=== PATIENT | female | born 1960 | race Caucasian/White ===

== ENCOUNTER 2017-06-09 09:49 | Emergency (ER) | payer OTHER ==
[~2017-06-09] VITALS: Ht 165.1 cm; Wt 82.1 kg
[~2017-06-09 09:49] MED LIST: ALBU-136 IH; LISI30TA6 PO
[2017-06-09 10:11] VITALS: BP 141/74
--- NOTE | 2017-06-09 10:47 | NUR ---
PT AMBULATED TO BED 7.
--- NOTE | 2017-06-09 10:50 | NUR ---
57F BIB SELF C/O RT FLANK PAIN, RADIATES TO LEFT FLANK X YESTERDAY; PT STATES HAS PAIN "WITH BENDING AND MOVEMENT", BUT STATES NO PAIN AT THIS TIME.; PT STATES NO TRAUMA OR INJURY TO SITE AT THIS TIME; PT STATES NO URINARY BURNING, NO URINARY RETENTION, OR PAIN ON URINATION AT THIS TIME; PT AA&OX4, PERRLA, BL LUNG SOUNDS CLEAR, RR EVEN/UNLABORED, SKIN IS WARM/DRY/INTACT AT THIS TIME; PT STATES NO N/V/D AT THIS TIME; STEADY GAIT; PT RESTING IN BED WITH HOB ELEVATED AND IN LOWEST POSITION; POSITIONED FOR COMFORT; ER MD MADE AWARE OF STATUS. WILL CONTINUE TO MONITOR.
--- NOTE | 2017-06-09 10:53 | NUR ---
ER MD DR. DIEHL EVALUATING PT AT BEDSIDE.
--- NOTE | 2017-06-09 11:12 | NUR ---
PT TAKEN TO XRAY VIA W/C ACCOMPANIED BY [employer].
[2017-06-09 11:56] VITALS: BP 122/72
--- NOTE | 2017-06-09 11:56 | NUR ---
Patient discharged with v/s stable. Written and verbal after care instructions given and explained. Patient alert, oriented and verbalized understanding of instructions. Ambulatory with to car. All questions addressed prior to discharge. ID band removed. Patient advised to follow up with PMD. Rx of NORCO 5MG-325MG TAB given. Patient educated on indication of medication including possible reaction and side effects. Opportunity to ask questions provided and answered.
== END 2017-06-09 11:56 | disposition home or self-care (01) ==
LOC: MED 09:49
DX: M81.8 Other osteoporosis without current pathological fracture (principal); M54.5 Low back pain; J45.909 Unspecified asthma, uncomplicated; K21.9 Gastro-esophageal reflux disease without esophagitis; I10 Essential (primary) hypertension; Z79.899 Other long term (current) drug therapy; Z88.6 Allergy status to analgesic agent
CPT/HCPCS: 72100; 99284

== ENCOUNTER 2018-02-24 16:19 | Emergency (ER) | payer OTHER ==
[~2018-02-24] VITALS: Ht 165.1 cm; Wt 84.0 kg
[2018-02-24 16:21] VITALS: BP 144/93
--- NOTE | 2018-02-24 16:28 | NUR ---
PT AMBULATES TO BED 7, REPORT GIVEN TO SANJUANITA MUJICA
--- NOTE | 2018-02-24 16:35 | NUR ---
PATIENT PRESENTS TO ED WITH COMPLAINTS OF BILATERAL EAR DRAINAGE AND EAR CONGESTION. PATIENT ALSO COMPLAINS OF RIGHT UPPER QUADRANT PAIN. EAR COMPLAINT X 10 DAYS AND ABDOMINAL PAIN COMPLAINT X 2 MONTHS. PATIENT REPORTS TAKING ANTIBIOTICS FOR EAR DRAINAGE WITH NO RELIEF. PURULENT DRAINAGE NOTED FROM BILATERAL EARS. SKIN IS PINK/WARM/DRY; AAOX4 WITH EVEN AND STEADY GAIT; LUNGS CLEAR BL; HR EVEN AND REGULAR; PT DENIES ANY FEVER, CP, SOB, OR COUGH AT THIS TIME; PATIENT STATES PAIN OF 0/10 AT THIS TIME; VSS; PATIENT POSITIONED FOR COMFORT; HOB ELEVATED; BEDRAILS UP X1; BED DOWN. ER MD MADE AWARE OF PT STATUS.
[2018-02-24 17:47] VITALS: BP 135/89
--- NOTE | 2018-02-24 17:47 | NUR ---
Patient discharged with v/s stable. Written and verbal after care instructions given and explained. Patient alert, oriented and verbalized understanding of instructions. Ambulatory with steady gait. All questions addressed prior to discharge. ID band removed. Patient advised to follow up with PMD. Rx of TRAMADOL, MIRALAX, AND MINERAL OIL given. Patient educated on indication of medication including possible reaction and side effects. Opportunity to ask questions provided and answered.
== END 2018-02-24 17:47 | disposition home or self-care (01) ==
LOC: MED 16:19
DX: R10.9 Unspecified abdominal pain (principal); R11.0 Nausea; H92.03 Otalgia, bilateral; J45.909 Unspecified asthma, uncomplicated; K21.9 Gastro-esophageal reflux disease without esophagitis; I10 Essential (primary) hypertension; Z88.8 Allergy status to other drugs, medicaments and biological substances
CPT/HCPCS: 74022; 99284

== ENCOUNTER 2018-04-13 14:55 | Emergency (ER) | payer OTHER ==
[~2018-04-13] VITALS: Ht 154.9 cm; Wt 72.1 kg
[2018-04-13 15:09] VITALS: BP 181/93
--- NOTE | 2018-04-13 15:40 | NUR ---
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 med hx: HTN,COPD, GERD. DENIES N/V/D; SKIN IS PINK/WARM/DRY; AAOX4 WITH EVEN AND STEADY GAIT; LUNGS CLEAR BL; HR EVEN AND REGULAR; PT DENIES ANY FEVER, CP, SOB, OR COUGH AT THIS TIME; PATIENT STATES PAIN OF 0/10 AT THIS TIME. PATIENT POSITIONED FOR COMFORT; HOB ELEVATED; BEDRAILS UP X2; BED DOWN. ER MADE AWARE OF PT STATUS. Addendum: 04/13/18 at 1619 by [email or web address] HOME MEDS: atenolol, traimeterene, omperazole, movi, asa, OFLOXACIN OPHTHALMIC SOLUTION 0.3%
--- NOTE | 2018-04-13 15:46 | NUR ---
PT TAKEN TO CT VIA W/C , ACCOMPANIED BY CURB WORKER.
--- NOTE | 2018-04-13 16:07 | NUR ---
PT BACK FROM CT. EKG AT BEDSIDE.
--- NOTE | 2018-04-13 16:28 | NUR ---
Patient being evaluated by DR DIEHL at bedside.
[2018-04-13 16:43] VITALS: BP 162/90
--- NOTE | 2018-04-13 16:44 | NUR ---
Patient discharged with BP 162/90 DENIES MENDOZA AT THIS TIME; MD MADE AWARE. Written and verbal after care instructions given and explained. Patient alert, oriented and verbalized understanding of instructions. Ambulatory with steady gait. All questions addressed prior to discharge. ID band removed. Patient advised to follow up with PMD. Rx of given. Patient educated on indication of medication including possible reaction and side effects. Opportunity to ask questions provided and answered.
== END 2018-04-13 16:44 | disposition home or self-care (01) ==
LOC: MED 14:55
DX: H60.91 Unspecified otitis externa, right ear (principal); J45.909 Unspecified asthma, uncomplicated; K21.9 Gastro-esophageal reflux disease without esophagitis; I10 Essential (primary) hypertension; F17.210 Nicotine dependence, cigarettes, uncomplicated; Z90.710 Acquired absence of both cervix and uterus; Z88.8 Allergy status to other drugs, medicaments and biological substances; Z79.899 Other long term (current) drug therapy
CPT/HCPCS: 70480; 81002; 81025; 93005; 99284

== ENCOUNTER 2018-07-03 18:57 | Inpatient (IN) | payer OTHER ==
[~2018-07-03] VITALS: Ht 165.1 cm; Wt 83.9 kg
[2018-07-03 19:23] VITALS: BP 144/86
--- NOTE | 2018-07-03 19:25 | NUR ---
PT AMBULATORY TO ER LOBBY W/ STEADY GAIT IN STABLE CONDITION.
--- NOTE | 2018-07-03 19:30 | NUR ---
PATIENT PRESENTS TO ED WITH C/O N/V/D. PAIN ON LLQ. EMESIS THE COLOR OF YELLOW. PT SKIN IS PINK/WARM/DRY; AAOX4 WITH EVEN AND STEADY GAIT; LUNGS CLEAR BL; HR EVEN AND REGULAR; PATIENT STATES PAIN OF 7/10 AT THIS TIME; VSS; PATIENT POSITIONED FOR COMFORT; HOB ELEVATED; BEDRAILS UP X2; BED DOWN. ER MD MADE AWARE OF PT STATUS.
--- NOTE | 2018-07-03 19:30 | NUR ---
PATIENT AMBULATED TO ER BED 3.
--- NOTE | 2018-07-03 19:59 | NUR ---
PT UNABLE TO VOID AT THIS TIME.
--- NOTE | 2018-07-03 20:03 | NUR ---
BLOOD COLLECTED AND SENT TO LAB
[2018-07-03 20:07] LABS: BASOPHILS % (AUTO) 0.2 % (0.0-2.0); EOSINOPHILS # (AUTO) 0.1 K/uL (0-0.4); EOSINOPHILS % (AUTO) 0.4 % (0.0-4.0); HEMATOCRIT 43.6 % (36-48); HEMOGLOBIN 14.4 g/dL (12.0-16.0); LYMPHOCYTES # (AUTO) 1.2 K/uL (2.5-16.5); LYMPHOCYTES % (AUTO) 8.5 % (20.5-51.1); MEAN CORPUSCULAR HEMOGLOBIN 27 pg (27-31); MEAN CORPUSCULAR HGB CONC 33 g/dL (33-37); MEAN CORPUSCULAR VOLUME 81.3 fL (80-94); MONOCYTES # (AUTO) 0.4 K/uL (0.8-1.0); MONOCYTES % (AUTO) 2.9 % (1.7-9.3); NEUTROPHILS # (AUTO) 12.5 K/uL (1.8-7.7); PLATELET COUNT (AUTO) 242 K/uL (140-450); RED BLOOD CELL COUNT(AUTO) 5.36 MIL/uL (4.20-5.40); RED CELL DISTRIBUTION WIDTH 13.7 % (11.6-13.7); WHITE BLOOD COUNT (AUTO) 14.3 K/uL (4.8-10.8)
[2018-07-03 20:30] LABS: ANION GAP 12.2 (8-16); CARBON DIOXIDE 27.9 mmol/L (21-32); CREATININE 0.9 mg/dL (0.6-1.3); POTASSIUM 3.1 mmol/L (3.5-5.1)
[2018-07-03 20:36] LABS: ALBUMIN 4.1 g/dL (3.4-5.0); TOTAL BILIRUBIN 0.3 mg/dL (0.0-1.0)
[2018-07-03] MEDS ORDERED: NACL 0.9% 1,000 ML IV SCH (21:57)
[2018-07-03] MEDS ORDERED: MORPHINE SULFATE 4 MG/ML SYR IVP ONE (22:00)
[2018-07-03] MEDS ORDERED: ONDANSETRON 4 MG/2 ML VIAL IVP ONE (22:00)
[2018-07-03 22:49] LABS: APPEARANCE,URINE CLEAR (CLEAR); BILIRUBIN,URINE NEGATIVE (NEGATIVE); BLOOD, URINE NEGATIVE (NEGATIVE); COLOR,URINE YELLOW (YELLOW); LEUKOCYTE ESTERASE ,URINE NEGATIVE (NEGATIVE); NITRITE, URINE NEGATIVE (NEGATIVE); UGLUCOSE NEGATIVE (NEGATIVE)
[2018-07-03 22:50] LABS: RBC,URINE 0-5 (RARE) /HPF (0-5)
--- NOTE | 2018-07-03 23:19 | NUR ---
DR DELGADO AT BEDSIDE TO EVALUATE PATIENT
[2018-07-03] MEDS ORDERED: ATEN50TA8 PO (23:28)
[2018-07-03] MEDS ORDERED: ALEN70TA52 PO (23:28)
[2018-07-03] MEDS ORDERED: OMEP20TC12 PO (23:28)
--- NOTE | 2018-07-04 00:25 | NUR ---
Patient appears to be resting comfortably in bed. Vital Signs within normal limits. Respirations even and unlabored.
--- NOTE | 2018-07-04 00:25 | NUR ---
Patient will be admitted to [facility]. Admited to Med/Surg. Belongings list completed.
--- NOTE | 2018-07-04 01:01 | NUR ---
Pt transferred to Med/Surg viaBED [id number] WITH SANJUANITA RIVERA .
--- NOTE | 2018-07-04 01:05 | NUR ---
ADMITTED PT FROM ER VIA WHEELCHAIR. AAOX4. PT IS AMBULATORY. NO C/O PAIN, NAUSEA OR VOMITING AT THIS TIME. NO RESP DISTRESS NOTED. SKIN INTACT. IV TO LEFT AC #20G, PATENT AND INTACT. ORIENTED PT TO ROOM. DISCUSSED PLAN OF CARE. PT VERBALIZED UNDERSTANDING. PT REFUSED NG TUBE INSERTION. EXPLAINED TO PT THE RISK OF REFUSING AND BENEFITS OF NGT, PT VERBALIZED UNDERSTANDING BUT STILL REFUSED. SAFETY PRECAUTION IN PLACE. CALL LIGHT WITHIN REACH.
--- NOTE | 2018-07-04 01:12 | NUR ---
PT REFUSED NGT PLACEMENT. ROCEPHIN TO BE GIVEN ON MST.
[2018-07-04 01:15] VITALS: BP 125/69
--- NOTE | 2018-07-04 01:35 | NUR ---
PAGED DR. CURRIE FOR ORDERS. DR. CAMPA SENIOR LABORATORY TECHNICIAN. AWAITING FOR CALL BACK
[2018-07-04] MEDS ORDERED: ONDANSETRON 4 MG/2 ML VIAL IVP PRN (01:55)
[2018-07-04] MEDS ORDERED: ACETAMINOPHEN 325 MG TAB PO PRN (01:55)
[2018-07-04] MEDS ORDERED: DEXT 5% / NACL 0.9% 500 ML IV SCH (01:55)
[2018-07-04] MEDS ORDERED: MORPHINE SULFATE 2 MG/ML SYR IVP PRN (01:55)
--- NOTE | 2018-07-04 01:55 | NUR ---
RECEIVED A CALL FROM DR. CAMPA. MADE AWARE THAT PT REFUSED NGT INSERTION AND POTASSIUM 3.1. RECEIVED ORDERS FROM .
[2018-07-04 02:02] LABS: MAGNESIUM 1.8 mg/dL (1.8-2.4); PHOSPHORUS 4.2 mg/dL (2.5-4.9)
[2018-07-04] MEDS: DEXT 5% / NACL 0.9% 1,000 ML IV SCH ×2 (02:05→15:11)
[2018-07-04] MEDS ORDERED: ALBUTEROL 0.083% 2.5 MG/3 ML NEBU INH PRN (02:10)
[2018-07-04] MEDS ORDERED: cefTRIAXone 1,000 MG VIAL ONE (02:13)
[2018-07-04] MEDS ORDERED: KCL 20 MEQ/WATER INJ PREMIX 100 ML IV SCH ×2 (02:30→10:30)
[2018-07-04 04:00] VITALS: BP 114/75
--- NOTE | 2018-07-04 04:30 | NUR ---
PT RESTING IN BED WITH EYES CLOSED. NO S/S OF PAIN OR DISCOMFORT. NO S/S OF RESP DISTRESS NOTED.
--- NOTE | 2018-07-04 05:28 | NUR ---
PT C/O PAIN AND REQUESTED TO STOP THE K RIDER. WILL PAGE DR. CAMPA.
--- NOTE | 2018-07-04 05:30 | NUR ---
D/C K RIDER INFUSION REQUESTED BY PT. PAGED DR. CAMPA. AWAITING FOR CALL BACK.
--- NOTE | 2018-07-04 06:05 | NUR ---
PAGED DR. CAMPA AGAIN. WAITING FOR CALL BACK.
--- NOTE | 2018-07-04 06:20 | NUR ---
RECEIVED A CALL FROM DR. CAMPA. ORDERED POTASSIUM CHLORIDE 40 MEQ PO ONCE.
--- NOTE | 2018-07-04 06:55 | NUR ---
K DUR 40 MEQ PO GIVEN. PT TOLERATED WELL. NO C/O NAUSEA OR VOMITING.
[2018-07-04] MEDS ORDERED: POTASSIUM CHLORIDE 10 MEQ TABER PO SCH (07:00)
[2018-07-04 07:11] LABS: ALBUMIN 3.2 g/dL (3.4-5.0); ANION GAP 11.5 (8-16); CARBON DIOXIDE 27.8 mmol/L (21-32); CREATININE 0.8 mg/dL (0.6-1.3); POTASSIUM 3.3 mmol/L (3.5-5.1); TOTAL BILIRUBIN 0.5 mg/dL (0.0-1.0)
--- NOTE | 2018-07-04 07:16 | NUR ---
ENDORSED PT TO DAY SHIFT NURSE. PT IN STABLE CONDITION.
--- NOTE | 2018-07-04 07:30 | NUR ---
RECEIVED PATIENT FROM THE COSTUMED CHARACTER ENTERTAINER RN BY THE BEDSIDE. PATIENT IS AWAKE AND ALERT. PATIENT HAS EVEN, UNLABORED RESPIRATION ON ROOM AIR. SKIN IS WARM AND DRY. DENIES ANY PAIN OR DISTRESS. PATIENT'S IV IS PATENT AND INTACT. BED AT THE LOWEST POSITION AND CALL LIGHT WITHIN REACH.
[2018-07-04 08:00] VITALS: BP 143/82
--- NOTE | 2018-07-04 09:28 | NUR ---
PATIENT IS SLEEPING COMFORTABLY. RESPIRATION IS EVEN AND UNLABORED. NO DISTRESS NOTED. BED AT THE LOWEST POSITION WITH THE CALL LIGHT WITHIN REACH.
--- NOTE | 2018-07-04 09:31 | NUR ---
PATIENT HAS BEEN SCREENED AND CATEGORIZED HIGH NUTRITION RISK. PATIENT WILL BE SEEN WITHIN 1-2 DAYS OF ADMISSION. 07/04/18-07/05/[address]
--- NOTE | 2018-07-04 09:36 | NUR ---
DR. CURRIE WAS MADE AWARE OF PATIENT'S POTASSIUM 3.3. WILL MEDICATE PER ORDER
[2018-07-04] MEDS ORDERED: POTASSIUM CHLORIDE 20 MEQ, LIDOCAINE MPF 1% - 5 mL VIAL 25 MG in NACL 0.9% 250 ML IV SCH (11:30)
--- NOTE | 2018-07-04 11:50 | NUR ---
PATIENT IS AWAKE AND ALERT. PATIENT STATES THAT SHE IS HAVING PAIN SCORE OF 6 (FROM 0 - 10 SCALE). WILL MEDICATE THE PATIENT. THE PATIENT WOULD LIKE TO CONTINUE WITH HER BP MEDICATION FROM HOME. WILL PAGE DR. CURRIE SINCE THERE IS NO ORDERS FOR BP MEDS.
[2018-07-04] MEDS: KETOROLAC 15 MG/ML VIAL IVP PRN (12:22)
--- NOTE | 2018-07-04 13:15 | NUR ---
PAGED DR. CURRIE REGARDING HOME MEDICATION RECONCILIATION. PATIENT STATED THAT SHE TAKES HER ALENDRONATE, ATENOLOL, LISINOPRIL, AND OMEPRAZOLE AT HOME ON REGULAR BASIS BUT NO ORDERS IN THE EMAR.
--- NOTE | 2018-07-04 14:15 | NUR ---
PATIENT WAS SLEEPING COMFORTABLY. RESPIRATION EVEN, UNLABOR ON ROOM AIR. NO DISTRESS NOTED AT THIS TIME
--- NOTE | 2018-07-04 15:24 | NUR ---
PATIENT WAS AWAKE, ALERT. RESPIRATION EVEN, UNLABOR ON ROOM AIR. DENIED PAIN N/V AFTER MEAL, COMPLAINED OF "FOOD STILL STUCK IN THE STOMACH". NO DISTRESS NOTED AT THIS TIME
[2018-07-04 16:00] VITALS: BP 129/68
--- NOTE | 2018-07-04 16:00 | NUR ---
PATIENT IS SLEEPING. BED AT THE LOWEST POSITION WITH THE CALL LIGHT WITHIN REACH.
[2018-07-04] MEDS ORDERED: ALENDRONATE SODIUM 70 MG TAB PO SCH (16:20)
--- NOTE | 2018-07-04 16:35 | NUR ---
CONTINUE PATIENT'S HOME MEDICATION PER DR. CURRIE
--- NOTE | 2018-07-04 18:15 | NUR ---
PATIENT WAS AWAKE, ALERT. RESPIRATION EVEN, UNLABOR ON ROOM AIR. NO DISTRESS NOTED AT THIS TIME. IV PATENT AND INTACT
[2018-07-04] MEDS ORDERED: LISINOPRIL 10 MG TAB PO SCH (18:30)
[2018-07-04] MEDS ORDERED: ATENOLOL 50 MG TAB PO SCH (18:30)
--- NOTE | 2018-07-04 19:30 | NUR ---
RECEIVED PT IN STABLE CONDITION FROM AM NURSE. AWAKE, ALERT AND ORIENTED X4. ON MED-SURG. NO C/O ANY DISCOMFORT NOR PAIN NOTED. WITH IVF INFUSING WELL ON THE LT AC #20. CLEAR AND PATENT. BED ON LOWEST POSITION. CALL LIGHT PLACED WITHIN EASY REACH. ENCOURAGED TO CALL FOR ANY ASSISTANCE. WILL CONTINUE TO MONITOR.
--- NOTE | 2018-07-04 19:30 | NUR ---
PATIENT ENDORSED TO EARLY CHILDHOOD EDUCATION WORKER RN BY BEDSIDE. PATIENT HAS EVEN UNLABORED RESPIRATION ON ROOM AIR. BED AT THE LOWEST POSITION AND CALL LIGHT WITHIN REACH.
[2018-07-04 20:00] VITALS: BP 138/82
[2018-07-04] MEDS ORDERED: LISINOPRIL 10 MG TAB ONE (20:45)
[2018-07-04] MEDS: LISINOPRIL 20 MG TAB PO SCH (21:00)
[2018-07-04] MEDS: ATENOLOL 50 MG TAB PO SCH (21:10)
--- NOTE | 2018-07-04 21:10 | NUR ---
PT REFUSED TO TAKE THE ZESTRIL. WASTED. SHE SAID ,SHE DOESN'T TAKE THIS ANYMORE. WILL HAVE MD MADE AWARE.
--- NOTE | 2018-07-04 22:00 | NUR ---
PT ASLEEP. NO S/S OF ANY DISCOMFORT NOR PAIN NOTED. WILL CONTINUE TO MONITOR.
--- NOTE | 2018-07-05 00:30 | NUR ---
PT ASLEEP. NO S/S OF ANY DISCOMFORT NOTED.
[2018-07-05] MEDS: DEXT 5% / NACL 0.9% 1,000 ML IV SCH ×2 (00:41→15:16)
[2018-07-05] MEDS: KETOROLAC 15 MG/ML VIAL IVP PRN ×3 (03:04→16:06)
--- NOTE | 2018-07-05 03:04 | NUR ---
MADE ROUNDS. PT AWAKE, SITTING ON THE BED. C/O ABDOMINAL PAIN. MEDICATED ORDERED. WILL CONTINUE TO MONITOR.
--- NOTE | 2018-07-05 04:30 | NUR ---
PT IS ASLEEP. NO S/S/ OF ANY DISCOMFORT AT THIS TIME.
--- NOTE | 2018-07-05 07:15 | NUR ---
ENDORSED PT IN STABLE CONDITION TO AM NURSE.
[2018-07-05 07:26] LABS: BASOPHILS # (AUTO) 0.1 K/uL (0.00-0.22); BASOPHILS % (AUTO) 1.2 % (0.0-2.0); EOSINOPHILS # (AUTO) 0.3 K/uL (0-0.4); EOSINOPHILS % (AUTO) 4.3 % (0.0-4.0); HEMATOCRIT 33.8 % (36-48); HEMOGLOBIN 11.4 g/dL (12.0-16.0); LYMPHOCYTES # (AUTO) 2.4 K/uL (2.5-16.5); LYMPHOCYTES % (AUTO) 41.7 % (20.5-51.1); MEAN CORPUSCULAR HEMOGLOBIN 28 pg (27-31); MEAN CORPUSCULAR HGB CONC 34 g/dL (33-37); MEAN CORPUSCULAR VOLUME 81.6 fL (80-94); MONOCYTES # (AUTO) 0.3 K/uL (0.8-1.0); MONOCYTES % (AUTO) 5.8 % (1.7-9.3); NEUTROPHILS # (AUTO) 2.8 K/uL (1.8-7.7); PLATELET COUNT (AUTO) 182 K/uL (140-450); RED BLOOD CELL COUNT(AUTO) 4.14 MIL/uL (4.20-5.40); RED CELL DISTRIBUTION WIDTH 13.9 % (11.6-13.7); WHITE BLOOD COUNT (AUTO) 5.9 K/uL (4.8-10.8)
[2018-07-05 07:30] VITALS: BP 132/67
--- NOTE | 2018-07-05 07:30 | NUR ---
RECEIVED PATIENT FROM ICE MAKER RN BY BEDSIDE. PATIENT IS ALERT AND ORIENTED. PATIENT HAS EVEN, UNLABORED RESPIRATION ON ROOM AIR. PATIENT STATES THAT SHE HAS PAIN SCORE 5 (PAIN SCALE 0-10) AND REQUEST TO BE MEDICATED. WILL MEDICATE PER ORDER. SKIN IS DRY AND WARM. VSS. BED IS AT THE LOWEST POSITION WITH CALL LIGHT WITHIN REACH.
[2018-07-05 07:39] LABS: ANION GAP 9.6 (8-16); CARBON DIOXIDE 26.8 mmol/L (21-32); CREATININE 0.7 mg/dL (0.6-1.3); POTASSIUM 3.4 mmol/L (3.5-5.1)
[2018-07-05] MEDS ORDERED: POTASSIUM CHLORIDE 10 MEQ TABER PO SCH (09:00)
[2018-07-05] MEDS ORDERED: ALENDRONATE SODIUM 70 MG TAB PO SCH (09:00)
[2018-07-05] MEDS: LISINOPRIL 20 MG TAB PO SCH (09:00)
--- NOTE | 2018-07-05 09:20 | NUR ---
SPOKE WITH DR QUEZADA AND GAVE PATIENT REPORT. PER DR MARIO PATIENT NPO EXCEPTS MEDS AND ORDER A SMALL BOWEL SERIES
--- NOTE | 2018-07-05 09:33 | NUR ---
PATIENT IS AWAKE AND ALERT. PATIENT STATES THAT SHE IS HAVING PAIN (PAIN SCORE OF 5 OUT OF 10). WILL MEDICATE THE PATIENT. PATIENT IS NOW NPO FOR PENDING PROCEDURE.
[2018-07-05] MEDS: ATENOLOL 50 MG TAB PO SCH (09:48)
--- NOTE | 2018-07-05 12:15 | NUR ---
PATIENT IS COMFORTABLY LYING ON THE BED. PATIENT IS ON ROOM AIR. SHE STATED THAT SHE DOES NOT HAVING ANY PAIN AT THIS TIME. CALL LIGHT WITHIN REACH AND BED AT THE LOWEST POSITION.
--- NOTE | 2018-07-05 14:12 | NUR ---
PATIENT IS SITTING COMFORTABLY ON THE BED WITHOUT ANY PAIN.PATIENT IS ALERT AND ORIENTED. PATIENT IS HAS EVEN UNLABORED RESPIRATION ON ROOM AIR.
[2018-07-05 16:00] VITALS: BP 139/75
--- NOTE | 2018-07-05 16:20 | NUR ---
PATIENT REQUESTING TO EAT. PATIENT REPORTS HAVING A SMALL AMOUNT OF BM. PAGED DR QUEZADA TO REPORT SMALL BOWEL SERIES RESULTS. WAITING FOR CALL BACK.
--- NOTE | 2018-07-05 19:36 | NUR ---
ENDORSED PATIENT TO THE PERCUSSION TEACHER RN BY BEDSIDE. PATIENT IS SITTING ON HER BED AND DENIES ANY PAIN. BED IS AT THE LOWEST POSITION AND CALL LIGHT WITHIN REACH.
--- NOTE | 2018-07-05 19:37 | NUR ---
RECEIVED PT IN STABLE CONDITION FROM AM NURSE. AWAKE,ALERT AND ORIENTED X4. MED SURG PT. WITH NO DISCOMFORT NOTED. HAS IVF INFUSING WELL ON THE LT AC#20. CLEAR AND PATENT. PLAN OF CARE DISCUSSED AND VERBALIZED UNDERSTANDING. BED ON LOW POSITION. CALL LIGHT PLACED WITHIN EASY REACH. WILL CONTINUE TO MONITOR.
--- NOTE | 2018-07-05 21:00 | NUR ---
PT IS ASLEEP. NO S/S OF ANY DISCOMFORT NOR PAIN NOTED.
--- NOTE | 2018-07-05 22:15 | NUR ---
DR. QUEZADA CAME AND SEEN PT. DIET CHANGED TO FULL LIQUID.
[2018-07-06] VITALS: BP 142/78
--- NOTE | 2018-07-06 01:00 | NUR ---
PT AWAKE. WATCHING TV. ASKED IF NEED ANY PAIN MED. SHE SAID SHE IS OK JUST THINKING OF HER SON. WILL CONTINUE TO MONITOR.
--- NOTE | 2018-07-06 02:30 | NUR ---
MADE ROUNDS. PT ASLEEP. NO S/S FO ANY DISCOMFORT NOTED.
[2018-07-06] MEDS: DEXT 5% / NACL 0.9% 1,000 ML IV SCH (04:17)
--- NOTE | 2018-07-06 04:30 | NUR ---
PT ASLEEP. NO S/S OF ANY DISCOMFORT NOTED.
[2018-07-06 06:48] LABS: BASOPHILS % (AUTO) 0.6 % (0.0-2.0); EOSINOPHILS # (AUTO) 0.2 K/uL (0-0.4); EOSINOPHILS % (AUTO) 4.5 % (0.0-4.0); LYMPHOCYTES # (AUTO) 2.8 K/uL (2.5-16.5); LYMPHOCYTES % (AUTO) 51.6 % (20.5-51.1); MEAN CORPUSCULAR HEMOGLOBIN 27 pg (27-31); MEAN CORPUSCULAR HGB CONC 33 g/dL (33-37); MEAN CORPUSCULAR VOLUME 82.2 fL (80-94); MONOCYTES # (AUTO) 0.4 K/uL (0.8-1.0); NEUTROPHILS # (AUTO) 1.9 K/uL (1.8-7.7); NEUTROPHILS % (AUTO) 36.3 % (42.2-75.2); PLATELET COUNT (AUTO) 171 K/uL (140-450); RED BLOOD CELL COUNT(AUTO) 4.01 MIL/uL (4.20-5.40); RED CELL DISTRIBUTION WIDTH 13.7 % (11.6-13.7); WHITE BLOOD COUNT (AUTO) 5.4 K/uL (4.8-10.8)
--- NOTE | 2018-07-06 07:20 | NUR ---
ENDORSED PT IN STABLE CONDITION TO AM NURSE.
--- NOTE | 2018-07-06 07:25 | NUR ---
RECEIVED PT REPORT AT BEDSIDE FROM HEALTHCARE REPRESENTATIVE NURSE. PT IS ASLEEP AT THIS TIME, NO S/S OF ACUTE DISTRESS. PT IS ON ROOM AIR. IV SITE NOTED ON L AC, 20 GAUGE, INFUSING D5NS AT 75 ML/HR. SKIN INTACT. PT IS AMBULATORY, ON A FULL LIQUID DIET AT THIS TIME. CALL LIGHT WITHIN REACH. WILL CONTINUE TO MONITOR.
[2018-07-06 07:37] LABS: ANION GAP 9.7 (8-16); CARBON DIOXIDE 26.1 mmol/L (21-32); CREATININE 0.7 mg/dL (0.6-1.3); POTASSIUM 3.8 mmol/L (3.5-5.1)
[2018-07-06 08:00] VITALS: BP 149/73
--- NOTE | 2018-07-06 08:55 | NUR ---
PT EXPRESSING DESIRE TO LEAVE. STATES, "I WANT TO GO HOME. I DON'T NEED ANY TREATMENT, I FEEL FINE". EXPLAINED TO PATIENT THAT SHE NEEDS TO STAY FOR OBSERVATION AND TREATMENT UNTIL MD APPROVES HER SAFE TO DISCHARGE. PT STILL WANTING TO GO HOME. DR CURRIE PAGED.
[2018-07-06] MEDS: LISINOPRIL 20 MG TAB PO SCH (09:00)
[2018-07-06] MEDS: ATENOLOL 50 MG TAB PO SCH (09:34)
--- NOTE | 2018-07-06 09:49 | NUR ---
DR CURRIE CALLED BACK, SAID OK TO DISCHARGE PT IF SHE CAN TOLERATE SOLID FOOD. WILL GIVE PT SOLID FOOD TO TRY.
--- NOTE | 2018-07-06 11:17 | NUR ---
PT TOLERATED SOLID FOOD (TUNA SANDWICH) WELL. NO GI DISTRESS.
--- NOTE | 2018-07-06 11:41 | NUR ---
PT REFUSING FLU VACCINE AND PNEUMONIA VACCINE UPON DISCHARGE.
--- NOTE | 2018-07-06 12:07 | NUR ---
PT HAS DISCHARGED. REFUSED FLU AND PNEUMONIA VACCINES. IV SITE DC'D, WRIST BANDS REMOVED. DISCHARGE DOCUMENTS GIVEN, SIGNATURES OBTAINED. PT LEFT WITH ALL HER BELONGINGS. PT BEING PICKED UP BY HER SISTER. PT LEFT IN STABLE CONDITION.
== END 2018-07-06 12:00 | disposition home or self-care (01) | DRG 249 ==
LOC: MED 18:57 → MTU 07-04 00:40
PROVIDERS: ADMIT Internal Medicine; ATTEND Internal Medicine
DX: K52.9 Noninfective gastroenteritis and colitis, unspecified (principal); E87.6 Hypokalemia; I10 Essential (primary) hypertension; J44.9 Chronic obstructive pulmonary disease, unspecified; K21.9 Gastro-esophageal reflux disease without esophagitis; N39.0 Urinary tract infection, site not specified; K44.9 Diaphragmatic hernia without obstruction or gangrene; Z87.891 Personal history of nicotine dependence; Z90.710 Acquired absence of both cervix and uterus; Z88.8 Allergy status to other drugs, medicaments and biological substances; Z79.899 Other long term (current) drug therapy
CPT/HCPCS: 36415; 74022; 74250; 80048; 80053; 81001; 83690; 83735; 84100; 85025; 87081; 87086; 94640; 96361; 96374; 96375; 99285; J0696; J1885; J2001; J2270; J2405; J3480; J7030; J7042; J7060; J7613

== ENCOUNTER 2019-03-13 13:04 | Emergency (ER) | payer OTHER ==
[~2019-03-13] VITALS: Ht 165.1 cm; Wt 84.8 kg
[~2019-03-13 13:04] MED LIST changes: +ALEN70TA9 PO; +ATEN50TA8 PO; +OMEP20TC12 PO
[2019-03-13 13:21] VITALS: BP 154/94
--- NOTE | 2019-03-13 13:33 | NUR ---
PT AMBULATED TO ER BED 07
[2019-03-13] MEDS ORDERED: methylPREDNISolone SS 125 MG/2 ML VIAL IVP ONE (14:20)
[2019-03-13] MEDS ORDERED: MORPHINE SULFATE 4 MG/ML SYR IVP ONE (14:20)
[2019-03-13] MEDS ORDERED: LIDOCAINE 1% 500 MG/50 ML VIAL INJ SCH (14:50)
--- NOTE | 2019-03-13 14:52 | NUR ---
BIB NEIGHBOR. AAO X4 C/O LEFT LEG PAIN EXACERBATED BY WALKING X 4 DAYS. PT USED UNKNOWN CREAM AND PATCH PRESCRIBED FROM LAST YEAR WITH NO RELIEF. PT TOOK TYLENOL TODAY AT 12OO WITH NO RELIEF. DENIES N/V/D; SKIN IS PINK/WARM/DRY, BUT EDEMA +2 ON LEFT KNEE NOTICED; AAOX4 WITH AMBULATE WITH DEVICE; PT DENIES ANY FEVER, CP, SOB, OR COUGH AT THIS TIME; PATIENT STATES PAIN OF 0/10 AT THIS TIME; VSS; PATIENT POSITIONED FOR COMFORT; HOB ELEVATED; BEDRAILS UP X2; BED DOWN. ER MD MADE AWARE OF PT STATUS.
[2019-03-13] MEDS ORDERED: LIDOCAINE MPF 1% - 5 mL VIAL 5 ML ONE ×2 (15:14→15:36)
--- NOTE | 2019-03-13 15:30 | NUR ---
DR. PAULSON IS GIVING INJECTION TO PT'S LEFT KNEE AT BED SIDE.
[2019-03-13] MEDS ORDERED: ETHYL CHLORIDE 105 ML SPR TP ONE (15:37)
[2019-03-13 16:23] VITALS: BP 158/83
--- NOTE | 2019-03-13 16:23 | NUR ---
Patient advised to follow up with PMD. Rx of Celebrex given. Patient educated on indication of medication including possible reaction and side effects. Opportunity to ask questions provided and answered. Pt was discharged by Dr. Wheatley.
== END 2019-03-13 16:23 | disposition home or self-care (01) ==
LOC: MED 13:04
DX: M17.12 Unilateral primary osteoarthritis, left knee (principal); I10 Essential (primary) hypertension; J44.9 Chronic obstructive pulmonary disease, unspecified; K21.9 Gastro-esophageal reflux disease without esophagitis; M81.0 Age-related osteoporosis without current pathological fracture; Z88.8 Allergy status to other drugs, medicaments and biological substances; Z79.899 Other long term (current) drug therapy
CPT/HCPCS: 73560; 93971; 96372; 99284; J2001; J2270; J2930; Q0092

== ENCOUNTER 2022-02-01 22:00 | Emergency (ER) | payer OTHER ==
[~2022-02-01] VITALS: Ht 165.1 cm; Wt 83.9 kg
[~2022-02-01 22:00] MED LIST changes: +ALBU-118 IH; -ALBU-136 IH; -ALEN70TA9 PO; +FOS70 PO; +OMEP-278 PO; -OMEP20TC12 PO
[2022-02-01 22:17] VITALS: BP 161/87
--- NOTE | 2022-02-01 22:17 | NUR ---
RECEIVED IN BED 1, BIBA WITH MULTIPLE C/O SUDDEN ONSET DIZZINESS, ABDOMINAL PAIN, BACK PAIN, SHOULDER PAIN, SWOLLEN ANKLES, GENERALIZED SWELLING, DIARRHEA X 5 TODAY AND HIGH BP. IS AWAKE AND ALERT, SKIN WARM AND DRY. ATTACHED TO CM = SR WITHOUT ECTOPY. SATURATING 98 - 99% ON R/A. PER MEDIC, PT HAS BEEN UNDER A GREAT DEAL OF STRESS AT HOME PMH : HTN ALLERIES : DEMEROL
[2022-02-01] MEDS ORDERED: MECLIZINE 25 MG TAB PO ONE (22:40)
[2022-02-01] MEDS ORDERED: ENALAPRILAT 2.5 MG/2 ML VIAL IVP ONE (22:55)
--- NOTE | 2022-02-01 23:00 | NUR ---
AMBULATED TO BR WITH MINIMAL ASSIST
[2022-02-01 23:30] LABS: BASOPHILS # (AUTO) 0.1 K/uL (0.00-0.22); BASOPHILS % (AUTO) 0.9 % (0.0-2.0); EOSINOPHILS # (AUTO) 0.2 K/uL (0-0.4); EOSINOPHILS % (AUTO) 2.4 % (0.0-4.0); HEMATOCRIT 31.8 % (36-48); HEMOGLOBIN 10.5 g/dL (12.0-16.0); LYMPHOCYTES # (AUTO) 2.7 K/uL (2.5-16.5); LYMPHOCYTES % (AUTO) 33.8 % (20.5-51.1); MEAN CORPUSCULAR HEMOGLOBIN 25 pg (27-31); MEAN CORPUSCULAR HGB CONC 33 g/dL (33-37); MEAN CORPUSCULAR VOLUME 75.2 fL (80-94); MONOCYTES # (AUTO) 0.5 K/uL (0.8-1.0); MONOCYTES % (AUTO) 6.8 % (1.7-9.3); NEUTROPHILS # (AUTO) 4.5 K/uL (1.8-7.7); NEUTROPHILS % (AUTO) 56.1 % (42.2-75.2); PLATELET COUNT (AUTO) 233 K/uL (140-450); RED BLOOD CELL COUNT(AUTO) 4.22 MIL/uL (4.20-5.40); RED CELL DISTRIBUTION WIDTH 14.3 % (11.6-13.7); WHITE BLOOD COUNT (AUTO) 8.1 K/uL (4.8-10.8)
[2022-02-02 00:31] LABS: APPEARANCE,URINE CLEAR (CLEAR); BILIRUBIN,URINE NEGATIVE (NEGATIVE); BLOOD, URINE NEGATIVE (NEGATIVE); COLOR,URINE YELLOW (YELLOW); LEUKOCYTE ESTERASE ,URINE NEGATIVE (NEGATIVE); NITRITE, URINE NEGATIVE (NEGATIVE); PH,URINE 5.5 (5.0-9.0); UGLUCOSE NEGATIVE (NEGATIVE)
[2022-02-02 01:46] LABS: ALBUMIN 3.4 g/dL (3.4-5.0); CARBON DIOXIDE 24.9 mmol/L (21-32); CREATININE 0.8 mg/dL (0.6-1.3); TOTAL BILIRUBIN 0.3 mg/dL (0.0-1.0)
[2022-02-02 01:48] LABS: POTASSIUM 2.9 mmol/L (3.5-5.1)
[2022-02-02] MEDS ORDERED: POTASSIUM CHLORIDE 20% 40 MEQ/15 ML UDC PO ONE (01:50)
--- NOTE | 2022-02-02 02:00 | NUR ---
AWAKE, AMBULATES TO BR, BACK TO BED AND MADE COMFORTABLE
[2022-02-02] MEDS ORDERED: ALBU0.0912 IH (02:31)
[2022-02-02] MEDS ORDERED: ALBUTEROL 0.083% 2.5 MG/3 ML NEBU INH ONE (02:40)
[2022-02-02 04:00] VITALS: BP 138/76
--- NOTE | 2022-02-02 04:00 | NUR ---
AWAKE, AMBULATES TO BR. WAS PREPARING FOR DISCHARGE AND C/O ABDOMINAL PAIN. CT ORFERED
--- NOTE | 2022-02-02 06:25 | NUR ---
CT RESULTS RETURNED, PT IS DISCHARGED. SL D/C'D CATHETER INTACT. ARM BAND REMOVED, ACI IN POSESSION
== END 2022-02-02 02:00 | disposition home or self-care (01) ==
LOC: MED 22:00
DX: R42 Dizziness and giddiness (principal); I10 Essential (primary) hypertension; R10.84 Generalized abdominal pain; J44.9 Chronic obstructive pulmonary disease, unspecified; E11.9 Type 2 diabetes mellitus without complications; K21.9 Gastro-esophageal reflux disease without esophagitis; E78.5 Hyperlipidemia, unspecified; Z98.890 Other specified postprocedural states; Z79.899 Other long term (current) drug therapy; Z88.5 Allergy status to narcotic agent
CPT/HCPCS: 36415; 71045; 74176; 80053; 81003; 83880; 84484; 85025; 85379; 93005; 94640; 96374; 99285; J3490; J7613; Q0092

== ENCOUNTER 2022-05-17 10:12 | Emergency (ER) | payer OTHER ==
[~2022-05-17] VITALS: Ht 162.6 cm; Wt 74.8 kg
[~2022-05-17 10:12] MED LIST changes: +ALBU0.0912 IH
[2022-05-17 10:15] VITALS: BP 157/80
--- NOTE | 2022-05-17 10:20 | NUR ---
PT AMBULATED TO BED 06.
--- NOTE | 2022-05-17 10:35 | NUR ---
Dr. Mao evaluating patient at bedside.
--- NOTE | 2022-05-17 10:36 | NUR ---
62 y/o female bib self with c/o left leg pain x yesterday. Current pain level is 1/10, patient describes pain as intermittent and sudden sharp at 10/10 level. Patient is noted with a small amount of swelling to back of knee. Patient states she has a history of blood clots 5 years ago and on same left leg. Patient has + bilateral pedal pulses. Medical History: HTN, HLD, "stomach problems" ALLERGY: MEPERIDINE
[2022-05-17] MEDS ORDERED: ACETAMINOPHEN 325 MG TAB PO ONE (10:40)
--- NOTE | 2022-05-17 10:42 | NUR ---
Patient is being taken to imaging via wheelchair.
--- NOTE | 2022-05-17 10:53 | NUR ---
Patient returned from imaging.
--- NOTE | 2022-05-17 10:59 | NUR ---
Ultrasound at bedside.
[2022-05-17 12:06] VITALS: BP 165/89
--- NOTE | 2022-05-17 12:06 | NUR ---
Patient discharged with v/s stable. Written and verbal after care instructions given. Patient verbalized understanding. Ambulatory with steady gait. All questions addressed prior to discharge. Advised to follow up with PMD.
--- NOTE | 2022-05-17 12:18 | NUR ---
The patient's care was reviewed and supervised by Chelsea Somers, RN, RN.
== END 2022-05-17 12:06 | disposition home or self-care (01) ==
LOC: MED 10:12
DX: M25.562 Pain in left knee (principal); J44.9 Chronic obstructive pulmonary disease, unspecified; K21.9 Gastro-esophageal reflux disease without esophagitis; I10 Essential (primary) hypertension; Z79.899 Other long term (current) drug therapy; Z88.8 Allergy status to other drugs, medicaments and biological substances
CPT/HCPCS: 73562; 93971; 99284; Q0092

== ENCOUNTER 2023-04-21 06:10 | Emergency (ER) | payer OTHER ==
[~2023-04-21] VITALS: Ht 165.1 cm; Wt 83.9 kg
[2023-04-21 06:19] VITALS: BP 144/80; PULSE 72; RESP 16; TEMP 97.4; O2SAT 99
[2023-04-21] MEDS ORDERED: KETOROLAC 60 MG/2 ML VIAL IM ONE (06:55)
[2023-04-21 08:08] VITALS: O2SAT 99
[2023-04-21 09:11] VITALS: BP 134/86; PULSE 72; RESP 18; TEMP 97.4; O2SAT 99
[2023-04-21] MEDS ORDERED: ACET-8905 PO (09:30)
[2023-04-21] MEDS ORDERED: IBUP-2213 PO (09:30)
== END 2023-04-21 09:13 | disposition home or self-care (01) ==
LOC: MED 06:10
DX: S20.212A Contusion of left front wall of thorax, initial encounter (principal); J44.9 Chronic obstructive pulmonary disease, unspecified; E11.9 Type 2 diabetes mellitus without complications; K21.9 Gastro-esophageal reflux disease without esophagitis; I10 Essential (primary) hypertension; Z90.710 Acquired absence of both cervix and uterus; Z79.899 Other long term (current) drug therapy; Z88.8 Allergy status to other drugs, medicaments and biological substances; W18.39XA Other fall on same level, initial encounter; Y92.89 Other specified places as the place of occurrence of the external cause; Y93.89 Activity, other specified; Y99.8 Other external cause status
CPT/HCPCS: 71101; 96372; 99285; J1885

== ENCOUNTER 2023-07-20 14:06 | Emergency (ER) | payer OTHER ==
[~2023-07-20] VITALS: Ht 152.4 cm; Wt 78.9 kg
[~2023-07-20 14:06] MED LIST changes: +ACET-8905 PO; +IBUP-2213 PO
[2023-07-20 14:11] VITALS: BP 113/66; PULSE 87; RESP 16; TEMP 98; O2SAT 99
[2023-07-20] MEDS ORDERED: IBUP-2213 PO (16:13)
[2023-07-20] MEDS ORDERED: KETOROLAC 30 MG/ML VIAL IM ONE (16:15)
[2023-07-20 16:34] VITALS: BP 123/66; PULSE 87; RESP 16; TEMP 98; O2SAT 99
== END 2023-07-20 16:34 | disposition home or self-care (01) ==
LOC: MED 14:06
DX: S83.8X2A Sprain of other specified parts of left knee, initial encounter (principal); J45.909 Unspecified asthma, uncomplicated; J44.9 Chronic obstructive pulmonary disease, unspecified; K21.9 Gastro-esophageal reflux disease without esophagitis; I10 Essential (primary) hypertension; Z79.899 Other long term (current) drug therapy; X58.XXXA Exposure to other specified factors, initial encounter; Y93.89 Activity, other specified; Y92.89 Other specified places as the place of occurrence of the external cause; Y99.8 Other external cause status
CPT/HCPCS: 73562; 93971; 96372; 99285; J1885

== ENCOUNTER 2023-08-12 14:24 | Emergency (ER) | payer OTHER ==
[~2023-08-12] VITALS: Ht 165.1 cm; Wt 83.9 kg
[2023-08-12 14:54] VITALS: BP 121/71; PULSE 81; RESP 18; TEMP 98.1; O2SAT 97
[2023-08-12 16:58] LABS: BASOPHILS % (AUTO) 0.3 % (0.0-2.0); EOSINOPHILS # (AUTO) 0.1 K/uL (0-0.4); EOSINOPHILS % (AUTO) 1.3 % (0.0-4.0); HEMATOCRIT 36.4 % (36-48); HEMOGLOBIN 12.4 g/dL (12.0-16.0); LYMPHOCYTES # (AUTO) 3.4 K/uL (2.5-16.5); LYMPHOCYTES % (AUTO) 33.1 % (20.5-51.1); MEAN CORPUSCULAR HEMOGLOBIN 28 pg (27-31); MEAN CORPUSCULAR HGB CONC 34 g/dL (33-37); MONOCYTES # (AUTO) 0.7 K/uL (0.8-1.0); MONOCYTES % (AUTO) 6.5 % (1.7-9.3); NEUTROPHILS # (AUTO) 6.1 K/uL (1.8-7.7); NEUTROPHILS % (AUTO) 58.8 % (42.2-75.2); PLATELET COUNT (AUTO) 251 K/uL (140-450); RED BLOOD CELL COUNT(AUTO) 4.38 MIL/uL (4.20-5.40); RED CELL DISTRIBUTION WIDTH 13.1 % (11.6-13.7); WHITE BLOOD COUNT (AUTO) 10.4 K/uL (4.8-10.8)
[2023-08-12 17:14] VITALS: PULSE 73; RESP 16; O2SAT 98
[2023-08-12 17:14] LABS: ANION GAP 11.3 (8-16); CALCIUM 8.8 mg/dL (8.5-10.1); CARBON DIOXIDE 28.8 mmol/L (21-32); CREATININE 0.7 mg/dL (0.6-1.3); POTASSIUM 3.1 mmol/L (3.5-5.1)
[2023-08-12] MEDS: ALBUTEROL SULFATE/IPRATROPIU 3 ML SOL IH ONE (17:14)
[2023-08-12 17:20] LABS: ALANINE AMINOTRANSFERASE 21 U/L (12-78); ALBUMIN 3.2 g/dL (3.4-5.0); ALKALINE PHOSPHATASE 67 U/L (50-136); ASPARTATE AMINOTRANSFERASE 16 U/L (15-37); BILIRUBIN,DIRECT 0.1 mg/dL (0.0-0.3); TOTAL BILIRUBIN 0.2 mg/dL (0.0-1.0); TOTAL PROTEIN, SERUM 7.7 g/dL (6.4-8.2)
[2023-08-12] MEDS: predniSONE 20 MG TAB PO ONE (17:46)
[2023-08-12] MEDS: POTASSIUM CHLORIDE 20% 40 MEQ/15 ML UDC PO ONE (17:47)
[2023-08-12 18:45] LABS: FLU A ANTIGEN negative (NEGATIVE); FLU B ANTIGEN NEGATIVE (NEGATIVE)
[2023-08-12] MEDS ORDERED: LID5T TP (18:50)
[2023-08-12] MEDS ORDERED: IBUP-2213 PO (18:50)
[2023-08-12] MEDS ORDERED: PRED20TA5 PO (18:50)
[2023-08-12] MEDS ORDERED: ALBU0.0912 IH (18:50)
[2023-08-12 19:06] VITALS: BP 121/71; PULSE 81; RESP 18; TEMP 98.1; O2SAT 97
== END 2023-08-12 19:06 | disposition home or self-care (01) ==
LOC: MED 14:24
DX: J06.9 Acute upper respiratory infection, unspecified (principal); J98.01 Acute bronchospasm; R07.9 Chest pain, unspecified; Z20.822 Contact with and (suspected) exposure to COVID-19; J44.9 Chronic obstructive pulmonary disease, unspecified; E11.9 Type 2 diabetes mellitus without complications; K21.9 Gastro-esophageal reflux disease without esophagitis; I10 Essential (primary) hypertension; Z79.899 Other long term (current) drug therapy; Z79.1 Long term (current) use of non-steroidal anti-inflammatories (NSAID); Z88.5 Allergy status to narcotic agent
CPT/HCPCS: 36415; 71045; 80048; 80076; 84484; 85025; 87426; 87804; 93005; 94640; 99285; J7512

== ENCOUNTER 2023-09-25 07:45 | Emergency (ER) | payer OTHER ==
[~2023-09-25] VITALS: Ht 165.1 cm; Wt 81.6 kg
[~2023-09-25 07:45] MED LIST changes: +LID5T TP; +PRED20TA5 PO
[2023-09-25 08:14] VITALS: BP 169/95; PULSE 71; RESP 18; TEMP 97.9; O2SAT 98
[2023-09-25 08:35] VITALS: TEMP 97.9
[2023-09-25] MEDS ORDERED: KETOROLAC 60 MG/2 ML VIAL IM ONE (09:40)
[2023-09-25] MEDS ORDERED: ACETAMINOPHEN EXTRA STRENGTH 500 MG TAB PO ONE (10:10)
[2023-09-25] MEDS ORDERED: ACET-8905 PO (10:57)
[2023-09-25] MEDS ORDERED: IBUP-2213 PO (10:57)
[2023-09-25] MEDS ORDERED: [UNRECOGNIZED DRUG - CODE] PO (10:57)
[2023-09-25 11:30] VITALS: BP 127/85; PULSE 69; RESP 13; O2SAT 94
== END 2023-09-25 11:30 | disposition home or self-care (01) ==
LOC: MED 07:45
DX: R51.9 Headache, unspecified (principal); H70.90 Unspecified mastoiditis, unspecified ear; J44.9 Chronic obstructive pulmonary disease, unspecified; E11.9 Type 2 diabetes mellitus without complications; K21.9 Gastro-esophageal reflux disease without esophagitis; I10 Essential (primary) hypertension; Z90.710 Acquired absence of both cervix and uterus; Z79.899 Other long term (current) drug therapy; Z79.1 Long term (current) use of non-steroidal anti-inflammatories (NSAID); Z88.8 Allergy status to other drugs, medicaments and biological substances
CPT/HCPCS: 70450; 81002; 99284; J1885

== ENCOUNTER 2024-01-23 20:24 | Emergency (ER) | payer OTHER ==
[~2024-01-23] VITALS: Ht 152.4 cm; Wt 63.5 kg
[~2024-01-23 20:24] MED LIST changes: +[UNRECOGNIZED DRUG - CODE] PO
[2024-01-23 21:12] VITALS: BP 163/86; PULSE 85; RESP 18; TEMP 98.2; O2SAT 97
[2024-01-23 21:17] VITALS: BP 163/86; PULSE 85; RESP 18; TEMP 98.2; O2SAT 97
[2024-01-23 22:09] LABS: BASOPHILS # (AUTO) 0.1 K/uL (0.00-0.22); BASOPHILS % (AUTO) 0.8 % (0.0-2.0); EOSINOPHILS # (AUTO) 0.1 K/uL (0-0.4); EOSINOPHILS % (AUTO) 0.9 % (0.0-4.0); HEMATOCRIT 37.8 % (36-48); HEMOGLOBIN 12.5 g/dL (12.0-16.0); LYMPHOCYTES # (AUTO) 3.7 K/uL (2.5-16.5); LYMPHOCYTES % (AUTO) 32.1 % (20.5-51.1); MEAN CORPUSCULAR HEMOGLOBIN 28 pg (27-31); MEAN CORPUSCULAR HGB CONC 33 g/dL (33-37); MONOCYTES # (AUTO) 0.8 K/uL (0.8-1.0); MONOCYTES % (AUTO) 6.6 % (1.7-9.3); NEUTROPHILS # (AUTO) 6.9 K/uL (1.8-7.7); NEUTROPHILS % (AUTO) 59.6 % (42.2-75.2); PLATELET COUNT (AUTO) 268 K/uL (140-450); RED CELL DISTRIBUTION WIDTH 14.3 % (11.6-13.7); WHITE BLOOD COUNT (AUTO) 11.5 K/uL (4.8-10.8)
[2024-01-23 22:18] LABS: ALBUMIN 3.4 g/dL (3.4-5.0); ANION GAP 10.7 (8-16); CALCIUM 9.4 mg/dL (8.5-10.1); CARBON DIOXIDE 27.7 mmol/L (21-32); CREATININE 0.7 mg/dL (0.6-1.3); POTASSIUM 3.4 mmol/L (3.5-5.1); TOTAL BILIRUBIN 0.3 mg/dL (0.0-1.0)
[2024-01-23] MEDS ORDERED: KETOROLAC 30 MG/ML VIAL ONE (23:07)
[2024-01-23] MEDS: KETOROLAC 30 MG/ML VIAL IM ONE (23:12)
== END 2024-01-23 23:13 | disposition home or self-care (01) ==
LOC: MED 20:24
DX: R22.41 Localized swelling, mass and lump, right lower limb (principal); M79.604 Pain in right leg; J44.9 Chronic obstructive pulmonary disease, unspecified; K21.9 Gastro-esophageal reflux disease without esophagitis; I10 Essential (primary) hypertension; Z79.1 Long term (current) use of non-steroidal anti-inflammatories (NSAID); Z79.899 Other long term (current) drug therapy; Z88.5 Allergy status to narcotic agent
CPT/HCPCS: 36415; 80053; 83880; 85025; 93971; 96372; 99285; J1885; Q0092

== ENCOUNTER 2024-02-15 21:59 | Emergency (ER) | payer OTHER ==
[~2024-02-15] VITALS: Ht 165.1 cm; Wt 77.1 kg
[2024-02-15 22:21] VITALS: BP 154/86; PULSE 70; RESP 16; TEMP 97.6; O2SAT 98
[2024-02-16] MEDS ORDERED: IBUP-2218 PO (01:07)
[2024-02-16] MEDS ORDERED: ACET-8905 PO (01:07)
[2024-02-16] MEDS: KETOROLAC 30 MG/ML VIAL IM ONE (01:21)
[2024-02-16 01:27] VITALS: BP 142/82; PULSE 72; RESP 16; TEMP 97.6; O2SAT 98
== END 2024-02-16 01:27 | disposition home or self-care (01) ==
LOC: MED 21:59
DX: S82.101A Unspecified fracture of upper end of right tibia, initial encounter for closed fracture (principal); J44.9 Chronic obstructive pulmonary disease, unspecified; E11.9 Type 2 diabetes mellitus without complications; K21.9 Gastro-esophageal reflux disease without esophagitis; I10 Essential (primary) hypertension; Z79.899 Other long term (current) drug therapy; Z88.5 Allergy status to narcotic agent; W22.8XXA Striking against or struck by other objects, initial encounter; Y92.89 Other specified places as the place of occurrence of the external cause; Y93.89 Activity, other specified; Y99.8 Other external cause status
CPT/HCPCS: 29505; 73562; 96372; 99283; J1885

== ENCOUNTER 2024-02-23 21:55 | Emergency (ER) | payer OTHER ==
[~2024-02-23] VITALS: Ht 165.1 cm; Wt 77.1 kg
[~2024-02-23 21:55] MED LIST changes: +IBUP-2218 PO
[2024-02-23 22:00] VITALS: BP 148/88; PULSE 69; RESP 16; O2SAT 97
[2024-02-24] MEDS: MORPHINE SULFATE 4 MG/ML SYR IVP ONE (01:31)
[2024-02-24] MEDS: NACL 0.9% 1,000 ML IV ONE (01:32)
[2024-02-24 01:56] VITALS: O2SAT 97
[2024-02-24 02:49] LABS: BASOPHILS # (AUTO) 0.1 K/uL (0.00-0.22); BASOPHILS % (AUTO) 0.6 % (0.0-2.0); EOSINOPHILS # (AUTO) 0.2 K/uL (0-0.4); EOSINOPHILS % (AUTO) 1.6 % (0.0-4.0); HEMATOCRIT 36.8 % (36-48); HEMOGLOBIN 12.3 g/dL (12.0-16.0); LYMPHOCYTES # (AUTO) 3.6 K/uL (2.5-16.5); LYMPHOCYTES % (AUTO) 37.9 % (20.5-51.1); MEAN CORPUSCULAR HEMOGLOBIN 28 pg (27-31); MEAN CORPUSCULAR HGB CONC 33 g/dL (33-37); MEAN CORPUSCULAR VOLUME 82.9 fL (80-94); MONOCYTES # (AUTO) 0.5 K/uL (0.8-1.0); MONOCYTES % (AUTO) 5.5 % (1.7-9.3); NEUTROPHILS # (AUTO) 5.2 K/uL (1.8-7.7); NEUTROPHILS % (AUTO) 54.4 % (42.2-75.2); PLATELET COUNT (AUTO) 284 K/uL (140-450); RED BLOOD CELL COUNT(AUTO) 4.44 MIL/uL (4.20-5.40); RED CELL DISTRIBUTION WIDTH 13.6 % (11.6-13.7); WHITE BLOOD COUNT (AUTO) 9.6 K/uL (4.8-10.8)
[2024-02-24 02:58] LABS: ANION GAP 11.9 (8-16); CALCIUM 8.8 mg/dL (8.5-10.1); CARBON DIOXIDE 28.4 mmol/L (21-32); CREATININE 0.7 mg/dL (0.6-1.3); POTASSIUM 3.3 mmol/L (3.5-5.1)
[2024-02-24 03:04] LABS: ALBUMIN 3.7 g/dL (3.4-5.0); BILIRUBIN,DIRECT 0.1 mg/dL (0.0-0.3); TOTAL BILIRUBIN 0.4 mg/dL (0.0-1.0); TOTAL PROTEIN, SERUM 8.3 g/dL (6.4-8.2)
[2024-02-24 03:28] VITALS: BP 136/76; PULSE 76; RESP 16
[2024-02-24 04:18] LABS: APPEARANCE,URINE CLEAR (CLEAR); BILIRUBIN,URINE NEGATIVE (NEGATIVE); BLOOD, URINE NEGATIVE (NEGATIVE); COLOR,URINE YELLOW (YELLOW); LEUKOCYTE ESTERASE ,URINE NEGATIVE (NEGATIVE); NITRITE, URINE NEGATIVE (NEGATIVE); PROTEIN,URINE NEGATIVE (NEGATIVE); UGLUCOSE NEGATIVE (NEGATIVE); UROBILINOGEN,URINE 0.2 EU/dL (0.2 - 1)
== END 2024-02-24 04:38 | disposition home or self-care (01) ==
LOC: MED 21:55
DX: K76.0 Fatty (change of) liver, not elsewhere classified (principal); J44.9 Chronic obstructive pulmonary disease, unspecified; E11.9 Type 2 diabetes mellitus without complications; K21.9 Gastro-esophageal reflux disease without esophagitis; I10 Essential (primary) hypertension; Z79.899 Other long term (current) drug therapy; Z88.5 Allergy status to narcotic agent
CPT/HCPCS: 36415; 76705; 80048; 80076; 81003; 82150; 83690; 85025; 96361; 96374; 99285; J2270; J7030; Q0092

== ENCOUNTER 2024-04-30 20:46 | Emergency (ER) | payer OTHER ==
[~2024-04-30] VITALS: Ht 165.1 cm; Wt 74.4 kg
[2024-04-30 21:30] VITALS: BP 129/85; PULSE 80; RESP 18; TEMP 98.7; O2SAT 98
[2024-04-30 22:50] LABS: APPEARANCE,URINE CLEAR (CLEAR); BILIRUBIN,URINE NEGATIVE (NEGATIVE); BLOOD, URINE TRACE-I (NEGATIVE); COLOR,URINE YELLOW (YELLOW); LEUKOCYTE ESTERASE ,URINE NEGATIVE (NEGATIVE); NITRITE, URINE NEGATIVE (NEGATIVE); PROTEIN,URINE NEGATIVE (NEGATIVE); UGLUCOSE NEGATIVE (NEGATIVE); UROBILINOGEN,URINE 0.2 EU/dL (0.2 - 1)
[2024-04-30] MEDS ORDERED: AMOX1TAB8 PO (23:04)
[2024-04-30] MEDS ORDERED: AZIT250T4 PO (23:15)
== END 2024-04-30 23:08 | disposition home or self-care (01) ==
LOC: MED 20:46
DX: J06.9 Acute upper respiratory infection, unspecified (principal); J44.9 Chronic obstructive pulmonary disease, unspecified; K21.9 Gastro-esophageal reflux disease without esophagitis; I10 Essential (primary) hypertension; Z79.899 Other long term (current) drug therapy; Z88.5 Allergy status to narcotic agent
CPT/HCPCS: 81003; 99283

== ENCOUNTER 2024-06-13 00:54 | Emergency (ER) | payer OTHER ==
[~2024-06-13] VITALS: Ht 165.1 cm; Wt 77.1 kg
[~2024-06-13 00:54] MED LIST changes: +AZIT250T4 PO; +CARV3.12 PO; +CIPR500T4 PO; +LOSA-272 PO; +METR-435 PO; +NIFE30TE5 PO
[2024-06-13 01:02] VITALS: BP 147/82; PULSE 76; RESP 16; TEMP 98.1; O2SAT 99
[2024-06-13] MEDS: KETOROLAC 60 MG/2 ML VIAL IM ONE (01:38)
[2024-06-13 03:00] VITALS: BP 117/63; PULSE 70; RESP 14; TEMP 98.3; O2SAT 99
== END 2024-06-13 03:28 | disposition home or self-care (01) ==
LOC: MED 00:54
DX: M25.561 Pain in right knee (principal); J44.9 Chronic obstructive pulmonary disease, unspecified; K21.9 Gastro-esophageal reflux disease without esophagitis; I10 Essential (primary) hypertension; M19.90 Unspecified osteoarthritis, unspecified site; Z90.710 Acquired absence of both cervix and uterus; Z79.899 Other long term (current) drug therapy; Z88.0 Allergy status to penicillin; Z88.5 Allergy status to narcotic agent
CPT/HCPCS: 96372; 99283; J1885

== ENCOUNTER 2024-06-18 19:50 | Emergency (ER) | payer OTHER ==
[~2024-06-18] VITALS: Ht 165.1 cm; Wt 77.1 kg
[2024-06-18 20:15] VITALS: BP 115/73; PULSE 79; RESP 18; TEMP 98; O2SAT 98
[2024-06-18] MEDS: FUROSEMIDE 40 MG/4 ML VIAL IVP ONE (22:40)
[2024-06-18 22:58] LABS: BASOPHILS # (AUTO) 0.1 K/uL (0.00-0.22); BASOPHILS % (AUTO) 0.7 % (0.0-2.0); EOSINOPHILS # (AUTO) 0.2 K/uL (0-0.4); EOSINOPHILS % (AUTO) 1.8 % (0.0-4.0); HEMATOCRIT 36.7 % (36-48); HEMOGLOBIN 12.1 g/dL (12.0-16.0); LYMPHOCYTES # (AUTO) 4.4 K/uL (2.5-16.5); MEAN CORPUSCULAR HEMOGLOBIN 28 pg (27-31); MEAN CORPUSCULAR HGB CONC 33 g/dL (33-37); MEAN CORPUSCULAR VOLUME 83.7 fL (80-94); MONOCYTES # (AUTO) 0.7 K/uL (0.8-1.0); MONOCYTES % (AUTO) 7.1 % (1.7-9.3); NEUTROPHILS # (AUTO) 5.1 K/uL (1.8-7.7); NEUTROPHILS % (AUTO) 48.4 % (42.2-75.2); PLATELET COUNT (AUTO) 319 K/uL (140-450); RED BLOOD CELL COUNT(AUTO) 4.38 MIL/uL (4.20-5.40); RED CELL DISTRIBUTION WIDTH 13.5 % (11.6-13.7); WHITE BLOOD COUNT (AUTO) 10.5 K/uL (4.8-10.8)
[2024-06-18 23:22] LABS: ANION GAP 11.4 (8-16); CALCIUM 8.2 mg/dL (8.5-10.1); CARBON DIOXIDE 27.8 mmol/L (21-32); CREATININE 0.8 mg/dL (0.6-1.3); POTASSIUM 3.2 mmol/L (3.5-5.1)
[2024-06-18 23:33] LABS: ALANINE AMINOTRANSFERASE 22 U/L (12-78); ALBUMIN 3.2 g/dL (3.4-5.0); ALKALINE PHOSPHATASE 60 U/L (50-136); ASPARTATE AMINOTRANSFERASE 16 U/L (15-37); BILIRUBIN,DIRECT 0.1 mg/dL (0.0-0.3); TOTAL BILIRUBIN 0.2 mg/dL (0.0-1.0); TOTAL PROTEIN, SERUM 7.8 g/dL (6.4-8.2)
[2024-06-19 03:28] VITALS: BP 139/55; PULSE 59; RESP 15; TEMP 98.1; O2SAT 98
== END 2024-06-19 03:28 | disposition home or self-care (01) ==
LOC: MED 19:50
DX: I11.0 Hypertensive heart disease with heart failure (principal); I50.9 Heart failure, unspecified; J44.9 Chronic obstructive pulmonary disease, unspecified; E78.5 Hyperlipidemia, unspecified; Z79.899 Other long term (current) drug therapy; Z88.0 Allergy status to penicillin; Z88.5 Allergy status to narcotic agent
CPT/HCPCS: 36415; 71045; 80048; 80076; 83880; 84484; 85025; 85379; 93005; 96374; 99285; J1940